=== PATIENT | male | born 1995 | race African-American/Black ===

== ENCOUNTER 2021-03-23 18:30 | Emergency (ER) | payer OTHER | END 2021-03-23 20:21 | disposition left against medical advice (07) | LOC: CSHERS 18:30 | DX: Z53.21 Procedure and treatment not carried out due to patient leaving prior to being seen by health care provider (principal) ==

== ENCOUNTER 2024-02-09 12:10 | Emergency (ER) | payer OTHER, SELFPAY ==
[2024-02-09] MEDS ORDERED: Ondansetron ODT 4 MG TAB ONE (13:35)
[2024-02-09] MEDS ORDERED: Acetaminophen 325 MG TAB ONE (13:36)
== END 2024-02-09 15:08 | disposition home or self-care (01) ==
LOC: CSHERS 12:10
DX: R11.2 Nausea with vomiting, unspecified (principal)
CPT/HCPCS: 87428; 99284; Q0162